=== PATIENT | male | born 2000 | race African-American/Black ===

== ENCOUNTER 2020-01-24 12:46 | Emergency (ER) | payer MEDICAID ==
[~2020-01-24] VITALS: Ht 152.4 cm; Wt 49.9 kg
[~2020-01-24 12:46] MED LIST: ALPRAZOLAM1 MG ORAL
--- NOTE | 2020-01-24 12:55 | NUR ---
ED Nurse Note: Patient was BIBA from [facility] store due to anxiety. Patient presented anxious, AAO x4, VSS at this time.
[2020-01-24 13:05] VITALS: BP 121/76
--- NOTE | 2020-01-24 14:14 | Emergency Room Report ---
History of Present Illness General Chief Complaint: Behavioral Complaint Source: Patient Present Illness HPI 19-year-old male with history of anxiety who already is taking Xanax brought in by paramedics due to sudden onset of anxiety attack in the middle the store. Patient complains of palpitation. Denies any chest pain at this time. Has already taken his Xanax prior to arrival. Vital signs within normal limits. Denies any SI and HI. Has an appointment with psychiatrist today. Denies any drug use at this time. Denies abdominal pain, nausea vomiting, fever and chills. Allergies: Coded Allergies: No Known Allergies (Unverified , 01/24/20) COVID-19 Screening COVID-19 risk:Contact w/high r: No COVID-19 risk:Travel to affect: No Has patient experienced shen: No COVID-19 Testing performed [employer]ER: No Patient History Past Medical History: see triage record Past Surgical History: none Family History: none Reviewed Nursing Documentation: PMH: Agreed; PSxH: Agreed Nursing Documentation-PMH Past Medical History: No History, Except For History Of Psychiatric Problem: Yes - ANXIETY Review of Systems All Other Systems: negative except mentioned in HPI Physical Exam Vital Signs Date Time Temp Pulse Resp B/P (MAP) Pulse Ox O2 Delivery O2 Flow Rate FiO2 01/24/20 12:40 97.3 70 20 121/76 (91) 99 Room Air Sp02 EP Interpretation: reviewed, normal General Appearance: alert/responsive, no apparent distress, GCS 15, non-toxic Head: atraumatic Eyes: PERRL, lids + conjunctiva normal ENT: hearing intact, no angioedema Neck: supple/symm/no masses, no meningismus Respiratory: effort normal, no wheezing, chest symmetrical Cardiovascular: regular rate, rhythm, no edema Gastrointestinal: non-tender, no mass, non-distended, no rebound/guarding, normal bowel sounds Musculoskeletal: gait & station normal, normal ROM, strength & tone normal, non -tender Neurologic: oriented x3, sensory intact, normal speech Psychiatric: judgment & insight normal, no suicidal/homicidal ideation, anxious Skin: no rash, well hydrated Lymphatic: normal inspection Medical Decision Making PA Attestation All my diagnosis and treatment plans were reviewed ad discussed with my supervising physician Dr. Stokes Diagnostic Impression: Primary Impression: Anxiety ER Course 19-year-old male with history of anxiety who already is taking Xanax brought in by paramedics due to sudden onset of anxiety attack in the middle the store. Patient complains of palpitation. Denies any chest pain at this time. Has already taken his Xanax prior to arrival. Vital signs within normal limits. Denies any SI and HI. Has an appointment with psychiatrist today. Denies any drug use at this time. Denies abdominal pain, nausea vomiting, fever and chills. Ddx considered but are not limited to: generalized anxiety disorder, panic attack, depression with psycotic featurs, bipolar disorder, drug overdose Vital signs: are WNL, pt. is afebrile H&PE are most consistent with: Anxiety ORDERS: Chest x-ray, EKG, tox screen ED INTERVENTIONS: NS bolus DISCHARGE: At this time pt. is stable for d/c to home. Will provide printed patient care instructions, and any necessary prescriptions. Care plan and follow up instructions have been discussed with the patient prior to discharge. Patient to follow-up with primary doctor and psychiatrist, patient felt better after IV hydration as well as taking food. If worsening symptoms return to the emergency room. At this time no further evaluation needed patient has a established psychiatrist and vital signs within normal limits. EKG Diagnostic Results Rate: normal Rhythm: NSR ST Segments: no acute changes Other Impression Josue Mccoy PA-C Chest X-Ray Diagnostic Results Chest X-Ray Diagnostic Results : Chest X-Ray Ordered: Yes # of Views/Limited/Complete: 1 View Indication: Other EP Interpretation: Yes Interpretation: no consolidation, no effusion, no pneumothorax, no acute cardiopulmonary disease Impression: No acute disease Electronically Signed by: Josue Mccoy PA-C Last Vital Signs Date Time Temp Pulse Resp B/P (MAP) Pulse Ox O2 Delivery O2 Flow Rate FiO2 01/24/20 13:05 97.3 20 121/76 99 Room Air 01/24/20 13:05 70 Disposition: HOME, SELF-CARE Condition: Stable Referrals: NOT CHOSEN IPA/,REFERRING (PCP) Patient Instructions: Generalized Anxiety Disorder Additional Instructions: Follow-up with your psychiatrist, if worsening symptoms return to the emergency room Josue Ventura Jan 24, 2020 14:13
[2020-01-24 14:59] VITALS: BP 121/76
--- NOTE | 2020-01-24 14:59 | NUR ---
ER DISCHARGE NOTE: Patient is cleared to be discharged per ERMD, pt is aox4, on room air, with stable vital signs. pt was given dc and prescription instructions, pt was able to verbalize understanding, pt id band and iv site removed without complications. pt is able to ambulate with steady gait. pt took all belongings.
== END 2020-01-24 14:58 | disposition home or self-care (01) ==
LOC: EDBD 12:46 → EMR 14:10
DX: F41.9 Anxiety disorder, unspecified (principal); R00.2 Palpitations
CPT/HCPCS: 80307; 96360; J7030; Z7502; 99284